=== PATIENT | male | born 1950 | race Caucasian/White ===

== ENCOUNTER 2017-02-12 17:27 | Inpatient (IN) | payer MEDICARE ==
[~2017-02-12] VITALS: Ht 167.6 cm; Wt 65.0 kg
[2017-02-12 18:30] LABS: BASOPHIL % 0.4 % (0-2); PLATELET COUNT 143 x10^3mcL (130-400); RED CELL DISTRIBUTION WIDTH 13.8 % (11.5-14.5)
[2017-02-12 18:39] LABS: CARBON DIOXIDE 22.7 mmol/L (21-32); CHLORIDE SERUM 107 mmol/L (98-107); GFR1 > 60 mL/min; GLUCOSE SERUM 114 mg/dL (74-106); SODIUM SERUM 140 mmol/L (136-145)
[2017-02-12 18:42] LABS: ALBUMIN 3.4 g/dL (3.4-5.0); ALKALINE PHOSPHATASE 46 U/L (46-116); ALT/SGPT 61 U/L (16-63); AST/SGOT 46 U/L (15-37); BILIRUBIN TOTAL 0.39 mg/dL (0.20-1.00); HDL CHOLESTEROL 49 mg/dL (40-60); LIPASE 208 IU/L (73-393); MAGNESIUM 1.7 mg/dL (1.8-2.4); TOTAL PROTEIN, SERUM 6.5 g/dL (6.4-8.2)
[2017-02-12 18:45] LABS: AMYLASE 116 U/L (25-115); CHOLESTEROL 106 mg/dL (<200)
[2017-02-12 19:21] LABS: microscopic required? NO
[2017-02-12 19:29] LABS: UA SPECIFIC GRAVITY 1.015 (1.005-1.035); urine erythrocyte NEGATIVE (NEGATIVE)
[2017-02-12 19:49] LABS: AMPHETAMINE QUAL UR NONE DETECTED (NEG <=1000)
[2017-02-12] MEDS ORDERED: ATENOLOL25 MG (23:25)
[2017-02-12] MEDS ORDERED: SIMVASTATIN10 M1 (23:26)
[2017-02-12] MEDS ORDERED: VASERETIC1 EA (23:26)
[2017-02-12] MEDS ORDERED: PLA75 (23:26)
[2017-02-13 00:23] VITALS: BP 148/71
[2017-02-13 02:37] LABS: CHOLESTEROL/HDL RATIO 2.3
[2017-02-13 02:44] LABS: T3 TOTAL 1.01 ng/mL
[2017-02-13 02:46] LABS: FREE T4 1.26 ng/dL (0.76-1.46); FREE THYROXINE INDEX 3.7 ug/dL (1.4-4.5); T4(THYROXINE) 10.8 ug/dL (4.7-13.3)
[2017-02-13 05:35] VITALS: BP 121/55
[2017-02-13 09:29] VITALS: BP 133/74
== END 2017-02-13 17:35 | disposition left against medical advice (07) | DRG 312 ==
LOC: EDBD 17:27 → ED 17:27 → DU 23:28
PROVIDERS: Emergency Medicine; ADMIT Family Medicine
DX: R55 Syncope and collapse (principal); K85.20 Alcohol induced acute pancreatitis without necrosis or infection; I10 Essential (primary) hypertension; F10.129 Alcohol abuse with intoxication, unspecified; F12.10 Cannabis abuse, uncomplicated; I73.9 Peripheral vascular disease, unspecified; E11.9 Type 2 diabetes mellitus without complications; E78.00 Pure hypercholesterolemia, unspecified; D64.9 Anemia, unspecified; Z68.23 Body mass index [BMI] 23.0-23.9, adult; Y90.0 Blood alcohol level of less than 20 mg/100 ml
CPT/HCPCS: 82962; 83880; 84439; G0480; J3475; J7030; Q0092